=== PATIENT | male | born 1980 | race Caucasian/White ===

== ENCOUNTER 2019-01-23 11:46 | Emergency (ER) | payer SELFPAY ==
[~2019-01-23] VITALS: Ht 172.7 cm; Wt 100.0 kg
[2019-01-23 12:01] VITALS: Ht 172.7 cm; Wt 100.0 kg
[2019-01-23] MEDS ORDERED: KETOROLAC 30 MG INJ IM STA (14:22)
--- NOTE | 2019-01-23 14:29 | ERD ---
ER Documentation Chief Complaint Chief Complaint pt is bib self with c/o right leg pain x 1 wk HPI Is a pleasant 38-year-old male who has right knee pain after he fell onto it on 9 days ago. He is able to walk but it hurts on the inner aspect of the knee. No head injury or KO. Has not been taking any medication for pain. ROS All systems reviewed and are negative except as per history of present illness. Medications Home Meds Active Scripts Hydrocodone/Acetaminophen (Call 5-325 Tablet) 1 Each Tablet, 1 TAB PO Q6H PRN for PAIN, #15 TAB Prov:TREY FORTUNE PA-C 01/23/19 Ibuprofen* (Motrin*) 800 Mg Tab, 800 MG PO Q6, #30 TAB Prov:TREY FORTUNE PA-C 01/23/19 Allergies Allergies: Coded Allergies: No Known Allergy (Unverified , 01/23/19) PMhx/Soc Medical and Surgical Hx: pt denies Medical Hx, pt denies Surgical Hx Hx Alcohol Use: No Hx Substance Use: No Hx Tobacco Use: No Smoking Status: Never smoker FmHx Family History: No diabetes Physical Exam Vitals Vital Signs Date Temp Pulse Resp B/P (MAP) Pulse Ox O2 O2 Flow FiO2 Time Delivery Rate 01/23/19 98.3 102 18 126/86 98 12:01 (99) Physical Exam Const: No acute distress Head: Atraumatic Eyes: Normal Conjunctiva ENT: Normal External Ears, Nose and Mouth. Neck: Full range of motion. No meningismus. Resp: Clear to auscultation bilaterally Cardio: Regular rate and rhythm, no murmurs Lower Extremity right Skin: No laceration Compartments: Soft Motor: Full active range of motion hip/knee/ankle/foot Sensation: Intact to light touch FDWS/MF/LF/P surfaces. Bones: Medial aspect of right knee mildly tender, no bony abnormalities, Joints: No effusion or laxity Pulses/Perfusion: 2+ DP, Capillary refill < 2 seconds Results 24 hrs Current Medications Medications Dose Sig/Yazan Start Time Status Last (Trade) Ordered Route PRN Stop Time Admin Dose Reason Admin Ketorolac 30 mg ONCE STAT 01/23/19 DC 01/23/19 Tromethamine IM 14:22 14:29 (Toradol) 01/23/19 14:23 1 tab ONCE ONCE 01/23/19 DC 01/23/19 Acetaminophen PO 14:30 14:29 / 01/23/19 14:31 Hydrocodone Bitart (Call (5/325)) Procedures/MDM Patient has knee pain after trauma. He is ambulatory neurovascularly intact. X -rays ordered. Toradol and Call given. X-rays are negative for fracture dislocation. Andrew wrap and crutches given. Prescription for ibuprofen and Call given. He should follow-up with primary care for possible outpatient referral for MRI if symptoms do not resolve. Patient counseled regarding my diagnostic impression and care plan. Prior to discharge all questions answered. Pt agrees with treatment plan and understands strict return precautions. Pt is instructed to follow up with primary care provider within 24-48 hours. Precautionary instructions provided including instructions to return to the ER if not improving or for any worsening or changing symptoms or concerns. Departure Diagnosis: Primary Impression: Knee pain Condition: Stable TREY FORTUNE PA-C Jan 23, 2019 14:29
[2019-01-23] MEDS ORDERED: HYDROCODONE/APAP (5/325) TAB PO ONE (14:30)
[2019-01-23] MEDS ORDERED: HYDR-4011 PO (15:00)
[2019-01-23] MEDS ORDERED: IBUP800T48 PO (15:00)
[2019-01-23 15:15] VITALS: BP 128/82; PULSE 77; RESP 18
== END 2019-01-23 15:17 | disposition home or self-care (01) ==
LOC: FTE 11:46
DX: M25.561 Pain in right knee (principal)
CPT/HCPCS: 73562; 96372; 99284; J1885